=== PATIENT | female | born 1955 | race Caucasian/White ===

== ENCOUNTER 2016-08-06 10:35 | Emergency (ER) | payer MEDICARE, MEDICAID ==
[~2016-08-06] VITALS: Ht 152.4 cm; Wt 51.4 kg
[~2016-08-06 10:35] MED LIST: ACET-1890 PO; ALBU18HF INH; ALPR0.5T PO; Benzonatate PO; CLIN-78 PO; FENT1PAT53 TOPICAL; FLUO20CA25 PO; HYDR-656 PO; Ibuprofen PO; OXYC20TA55 PO; Oxycodone Hcl PO; POLY17PO6 PO; QUET200T PO; QUET25TA PO; SENN-60 PO; TIOT18CA3 IH
[2016-08-06 10:38] VITALS: BP 144/79; PULSE 83; RESP 16; O2SAT 97
--- NOTE | 2016-08-06 11:01 | DRSVH ---
PROCEDURE: X-RAY CHEST, TWO VIEWS ([id number]) INDICATIONS: pain when breathing in on Left side TECHNIQUE: 2 views of the chest were acquired. COMPARISON: [facility], , CHEST 2VW, 11/13/2014, 9:29. FINDINGS: Surgical changes and devices: None. Lungs and pleura: No pleural effusions or pneumothorax. No acute consolidation. A few scar/atelectas is with grossly unchanged appearance. Blunting of the right costophrenic angle as before Mediastinum: Mediastinal contours are normal. Heart size is normal. Bones and chest wall: No suspicious bony abnormalities. Soft tissues appear unremarkable. IMPRESSION: No acute disease. Diffuse scarring/atelectasis Dictated by: Alvaro Smith M.D. on 08/06/2016 at 10:58 Approved by: Alvaro Smith M.D. on 08/06/2016 at 11:00
--- NOTE | 2016-08-06 11:02 | ED.REPORT ---
HPI-Dyspnea / Wheezing Date of Service Aug 06, 2016 ED Provider: Luis Soriano MD The patient is a 61 year old female w/ a hx of traumatic brain injury, chronic obstructive pulmonary disease/emphysema, bipolar affective disorder presents to the ED due to left rib pain onset 2 days ago. Associated symptoms a cough, chills, and SOB. She denies fever, nausea, vomiting, and diarrhea. She experienced these symptoms before and she was diagnosed with pneumonia. She is a former smoker. She reports persistent left axillary pain on the posterior axillary line about the level of the fourth or fifth rib. She says that this pain is reproducible and exacerbated by deep breaths and palpation. Nursing Notes Stated Complaint: PNEUMONIA Chief Complaint: Respiratory Distress Nursing Notes Reviewed: Yes Allergies: Coded Allergies: wasp venom (Verified Allergy, Unknown, ANAPHYLAXIS, 07/21/14) Scheduled Clindamycin (Clindamycin) 300 Mg Capsule 300 MG PO QID Doxycycline Monohyd (Doxycycline Monohyd) 100 Mg Tablet 100 MG PO BID Fentanyl 25 mcg/hr (Duragesic 25 mcg/hr) 1 Patch Patch 1 PATCH TOPICAL Q3D Fluoxetine (Fluoxetine) 20 Mg Capsule 40 MG PO DAILY Oxycodone ER (Oxycontin) 20 Mg Tab.er.12h 20 MG PO BID Quetiapine Fumarate (Seroquel) 25 Mg Tablet 25 MG PO BID Quetiapine Fumarate (Seroquel) 200 Mg Tablet 200 MG PO BID Tiotropium [place] (Spiriva) 18 Mcg Cap.w.dev 18 MCG IH DAILY Scheduled PRN ([Ibuprofen]) 600 MG TABLET 600 MG PO TID PRN PRN For Pain ([Benzonatate]) 100 MG CAPSULE 100 MG PO TID PRN PRN For Cough ([Oxycodone Hcl]) 5 MG TABLET 5 MG PO Q4H PRN PRN For Pain Acetaminophen (Tylenol) 325 Mg Tablet 650 MG PO Q4 PRN PRN For Pain Albuterol Sulfate (Ventolin HFA Inhaler) 200 Puff/18 Gm Inhaler 1 PUFF INH Q4 PRN PRN For Wheezing Alprazolam (Xanax) 0.5 Mg Tablet 0.5 MG PO TID PRN PRN For Anxiety Polyethylene Glycol 3350 (Miralax) 17 Gm/Pkt Powd.pack 17 GM PO DAILY PRN PRN For Constipation Sennosides (Senokot) 8.6 Mg Tablet 17.2 MG PO BID PRN PRN For Constipation hydrOXYzine Hcl (HydrOXYzine Hcl) 25 Mg Tablet 25 MG PO QID PRN PRN For Itching General Time Seen by MD: 11:02 Chief Complaint Other (left rib pain) Hx Obtained From: Patient Arrived By: Walk-in Sudden in Onset?: Yes Onset Occurred: 2 days ago Symptom Duration: Since onset Quality: Painful Radiation: : Does not radiate Severity: Current: Mild Recent Healthcare: No recent doctor visit, No recent hospitalization Similar Sx Previous: Yes Past Medical History Past Medical History Notes: Pt denies any h/o ICU admits for dyspnea chronic pain, chronic opiates Past Medical History Collapsed left lung Hepatitis C Right humerus fracture Reports: COPD, Denies: Diabetes mellitus Past Surgical History Right humerus fracture repair Smoking History Former Smoker Ambulatory Status Independent Review of Systems Constitutional: Reports: Chills, Denies: Fever Respiratory: Reports: Non-productive cough, Shortness of breath Musculoskeletal: Reports: Thoracic pain Complete sys rev & neg: except as marked. GI: Denies: Diarrhea, Nausea, Vomiting Physical Exam Initial Vital Signs Vital Signs (First) Date Time Temp Pulse Resp B/P Pulse Ox O2 Delivery O2 Flow Rate FiO2 08/06/16 10:38 36.9 83 16 144/79 97 Room Air Initial VS: Reviewed Head / Eyes: Atraumatic, Normocephalic, PERRL ENT: Mucous membranes moist, Conjunctiva normal Abdomen / GI: Soft, Non-tender, No guarding, No rebound, No distention Extremities: Vascular intact, No swelling, No tenderness Skin: Warm, Dry General/Constitutional: Awake, Alert Neck: Atraumatic, Supple, No swelling, Non-tender Respiratory / Chest: Atraumatic Rales / Rhonchi: Positive: Rhonchi fine L, Rhonchi fine R Cardiovascular: Heart rate NL, Regular rhythm, Heart sounds NL Lower Extremity / Pelvis / MS: No edema Interpretation & Diagnostics Lab Results Interpretation Result Diagram: 08/06/16 1057 08/06/16 1057 Test 08/06/16 10:57 White Blood Count 9.1th/mm3 (3.8-10.1) Red Blood Count 4.28mil/mm3 (3.90-5.20) Hemoglobin 12.7g/dL (12.0-15.6) Hematocrit 38.9% (35.0-46.0) Mean Corpuscular Volume 90.9fL (81-100) Mean Corpuscular Hemoglobin 29.7pg (27.0-35.0) Mean Corpuscular Hemoglobin Concent 32.6% (32.0-37.0) Red Cell Distribution Width 12.9% (12.3-15.4) Platelet Count 307bil/L (150-400) Neutrophils (%) (Auto) 67.7% (40-74) Lymphocytes (%) (Auto) 24.4% (14-46) Monocytes (%) (Auto) 5.7% (4-12) Eosinophils (%) (Auto) 1.8% (0-5) Basophils (%) (Auto) 0.3% (0-3) Sodium Level 134mEq/L (134-144) Potassium Level 4.2mEq/L (3.5-5.2) Chloride Level 97mEq/L (97-108) Carbon Dioxide Level 23mmol/L (18-29) Blood Urea Nitrogen 15mg/dL (8-27) Creatinine 0.47mg/dL (0.57-1.00) Estimat Glomerular Filtration Rate 194mL/min (>59) Glucose Level 104mg/dL (60-99) Calcium Level 9.2mg/dL (8.5-10.1) Magnesium Level 1.8mg/dL (1.6-2.6) Total Bilirubin 0.2mg/dL (0.0-1.2) Aspartate Amino Transf (AST/SGOT) 20U/L (0-50) Alanine Aminotransferase (ALT/SGPT) 17U/L (0-32) Alkaline Phosphatase 94U/L (25-165) Troponin T < 0.010ug/L (0.0-0.011) Total Protein 7.1g/dL (6.4-8.4) Albumin 4.0g/dL (3.4-5.0) ECG Interpretation ECG Interpretation: abnormal R-wave progression Time: 10:59 Interpreted by: ED physician Normal ECG Interpretation: Normal sinus rhythm (rate 79) X-Ray Chest Interpretation Chest Xray Interpretation: IMPRESSION: No acute disease. Diffuse scarring/atelectasis Dictated by: Alvaro Smith M.D. on 08/06/2016 at 10:58 Approved by: Alvaro Smith M.D. on 08/06/2016 at 11:00 View: Portable Interpretation / Wet Read by: Interpret - Radiologist Re-Eval/Medical Decision Med Decision/Clinical Course This woman has a relatively benign-looking chest x-ray and a relatively benign history and a relatively benign chest exam, but apparently has fairly severe COPD and I am uncomfortable discharging her without him. Antibiotics in this setting given [place]. I will prescribe doxycycline to be taken empirically for now. Counseled Regarding: Diagnosis, Lab results, Need for follow-up, When/why to return to ED Discharge & Departure Impression: Primary Impression: Chest pain Chest pain type: unspecified Qualified Code: R07.9 - Chest pain, unspecified Disposition: Home Discharge Condition All VS Reviewed: Yes Condition: Stable Patient Instructions: Chronic Obstructive Pulmonary Disease (ED) Additional Instructions: I am going to send you home with Doxycycline. Follow up with your primary care physician as needed .Return to the Emergency Department for any new or worsening symptoms. Referrals: Lilibeth Johnson (PCP) Scribe Attestation Portion of this note were transcribed by Lorena Jean-Baptiste. I, Dr. Soriano, personally performed the history, physical exam, and medical decision-making: I reviewed and confirmed the accuracy for the information in the transcribed note. Signed by: saray Greenwood, 08/26/16 1300 copies to: Lilibeth Johnson Kirk H MD Aug 06, 2016 11:02 Lorena Jean-Baptiste Aug 06, 2016 11:54
[2016-08-06 11:19] LABS: BASOPHILS % (AUTO) 0.3 % (0-3); EOSINOPHILS % (AUTO) 1.8 % (0-5); MONOCYTES % (AUTO) 5.7 % (4-12); Mean Corpuscular Hemoglobin 29.7 pg (27.0-35.0); Mean Corpuscular Volume 90.9 fL (81-100); NEUTROPHILS % (AUTO) 67.7 % (40-74); Platelet Count 307 bil/L (150-400)
[2016-08-06 12:19] LABS: Magnesium 1.8 mg/dL (1.6-2.6)
[2016-08-06 12:20] LABS: TROPONIN T < 0.010 ug/L (0.0-0.011)
[2016-08-06] MEDS ORDERED: DOXY-232 PO (13:03)
[2016-08-06 13:16] VITALS: BP 143/67; PULSE 98; RESP 17; O2SAT 98
== END 2016-08-06 13:16 | disposition home or self-care (01) ==
LOC: SED 10:35
DX: R07.9 Chest pain, unspecified (principal); R06.02 Shortness of breath; R05 Cough; J44.9 Chronic obstructive pulmonary disease, unspecified; Z87.820 Personal history of traumatic brain injury; Z87.891 Personal history of nicotine dependence; Z87.01 Personal history of pneumonia (recurrent); Z91.030 Bee allergy status